=== PATIENT | female | born 1935 | race Caucasian/White ===

== ENCOUNTER 2017-11-29 08:32 | Day surgery (SDC) | payer MEDICARE, BC ==
[~2017-11-29 08:32] MED LIST: LIDOCAINE HCL 1% MPF SOL ONE; PROPOFOL 500 MG/50 ML EMU IV ONE
[2017-11-29] MEDS ORDERED: ONDANSETRON HCL 4 MG/2 ML SOL ONE (10:24)
[2017-11-29 10:32] VITALS: TEMP 97.2
[2017-11-29 10:54] VITALS: BP 118/63; RESP 20; O2SAT 97
[2017-11-29 11:07] VITALS: PULSE 63
== END 2017-11-29 11:20 | disposition home or self-care (01) | DRG 951 ==
LOC: SURG 08:32
PROVIDERS: ATTEND Internal Medicine Gastroenterology
DX: Z12.11 Encounter for screening for malignant neoplasm of colon (principal); D12.5 Benign neoplasm of sigmoid colon; K64.4 Residual hemorrhoidal skin tags; Z86.010 Personal history of colon polyps; K64.8 Other hemorrhoids
CPT/HCPCS: J2405; J2001; J2704